=== PATIENT | male | born 1940 | race Caucasian/White ===

== ENCOUNTER 2022-05-18 19:24 | Emergency (ER) | payer MEDICARE, MEDICAID, SELFPAY ==
--- NOTE | ~2022-05-18 | XR_ITS ---
EXAMINATION: XR CHEST CLINICAL INFORMATION: Cough. COMPARISON: CT of the chest 09/26/2021 TECHNIQUE: Frontal portable view of the chest was obtained. 9:34 PM FINDINGS: Status post median sternotomy. Heart size is normal. No acute abnormality of chest. No pulmonary vascular congestion. Lungs are normally aerated. There is no pleural effusion or pneumothorax. Multilevel degenerative spondylosis spine. XR/XR chest 1V IMPRESSION: No acute abnormality of the chest.
--- NOTE | 2022-05-18 19:31 | ED.MALEGU ---
HPI - Male Genitourinary General Stated complaint: Blood In Urine/Tachycardia Time Seen by Provider: 05/18/22 19:31 Source: patient Mode of arrival: EMS Limitations: no limitations
[2022-05-18 19:35] VITALS: BP 122/76; BP 142/67; PULSE 91; PULSE 93; RESP 15; TEMP 36.8; O2SAT 96; O2SAT 97; BMI 21.1
--- NOTE | 2022-05-18 19:44 | PC.NURSE ---
spoke with visiting nurse: pt coming from home sob, cough, uri symptoms x2d, tested +ve for covid yesterday. increased weakness, blood in urine noted yesterday. query sepsis, pneumonia. vss at home, afebrile.
--- NOTE | 2022-05-18 19:46 | ED.AMS ---
HPI - Altered Mental Status General Chief Complaint: General Medical Stated Complaint: Blood In Urine/Tachycardia Time Seen by Provider: 05/18/22 19:31 Source: patient Mode of arrival: EMS Limitations: no limitations History of Present Illness HPI narrative: Patient 81 years old with history of seizures on Keppra 1500 mg twice daily last MRI 06/08 revealed diffuse cortical volume loss [facility] 2004, HTN, HLD, PVD, nicotine use disorder, , PUD, BPH, prostate cancer s/p radiation 2018 brought by EMS for increased weakness cold/cough symptoms for last few days per EMS patient was sitting on the chair leaned over started having seizure-like activity eyes rolled back and had a blank stare after the episode patient was postictal did not recognize his patient does not remember the event patient has seizure disorder on Keppra last seizure was about 6 months ago. Also BN and noticed that patient had some blood in the urine , patient sick with COVID Related Data Allergies Allergy/AdvReac Type Severity Reaction Status Date / Time No Known Allergies Allergy Verified 05/18/22 19:55 Review of Systems Review of Systems: Yes all other systems are reviewed and are negative PMFSH Past Medical History Medical History Anxiety Depression Seizure Surgical History Hx of CABG Social History Social History Advance Directives: No Advance Directives Information Provided: No Physical Exam ED Vital Signs: Vital Signs - 24 hr 05/18/22 19:35 05/18/22 21:21 05/19/22 00:19 Temperature 98.2 F 97.9 F 98.6 F Pulse Rate 91 84 88 Respiratory Rate 15 20 15 Blood Pressure 142/67 H 137/56 L 105/55 L Pulse Oximetry 97 98 97 Oxygen Delivery Method Room Air Room Air Room Air 05/19/22 00:28 Temperature Pulse Rate 82 Respiratory Rate 15 Blood Pressure 109/54 L Pulse Oximetry 96 Oxygen Delivery Method Room Air BMI result Body Mass Index 21.1 Appearance: Alert. Oriented X3. No acute distress. Eyes: PERRLA, No Nystagmus ENT: Pharynx normal. Oral Mucosa moist Neck: Normal inspection. Neck supple. CVS: Normal heart rate and rhythm. Pulses normal. Respiratory: No respiratory distress. Equal air entry bilateral, no wheezing/rales/rhonchi Abdomen: Soft and nontender. Bowel sounds are present, no mass palpable, no CVA tenderness Skin: Skin warm and dry. Normal skin color. Normal skin turgor. Extremities: No lower extremity edema. No calf tenderness Neuro: Oriented X 3. No motor deficit. No sensory deficit.No cerebellar signs , cranial nerves II-XII intact Medications Administered Discontinued Medications Generic Name Dose Route Start Last Admin Trade Name Freq PRN Reason Stop Dose Admin Sodium Chloride 1,000 mls @ 999 mls/hr 05/18/22 19:55 05/18/22 21:44 Ns IV 05/18/22 20:55 Infused .Q1H1M ONE Infusion Sodium Chloride 1,000 mls @ 999 mls/hr 05/18/22 22:06 05/18/22 23:20 Ns IV 05/18/22 23:06 Infused .Q1H1M ONE Infusion Ceftriaxone Sodium 1 gm/ 50 mls @ 100 mls/hr 05/18/22 22:06 05/18/22 22:54 Sodium Chloride IV 05/18/22 22:35 Infused ONCE ONE Infusion Medical Decision Making Medical Decision Making [facility] Narrative: 81 years old with history of seizures on Keppra 1500 mg twice daily last MRI 06/08 revealed diffuse cortical volume loss [facility]/p [facility]G X3 2004, HTN, HLD, PVD, nicotine use disorder, , PUD, BPH, prostate cancer s/p radiation 2018 brought by EMS for increased weakness cold/cough symptoms for last few days workup showed patient COVID positive chest x-ray negative saturating 98% room air patient feeling very weak to go home his lactic acidosis likely type B lactic acidosis from dehydration and seizure episode will keep patient for physician observation overnight will consult case management for placement Admission/Observation Consideration of admission/observation: Escalation of care including admission/observation considered Lab Data [facility] Lab Attestation statement: I reviewed the patient's lab results. Result Diagrams: 05/18/22 20:39 05/18/22 21:13 Labs: Lab Results 05/18/22 05/18/22 05/18/22 Range/Units 20:39 21:13 21:13 WBC 6.5 (4.8-10.8) X10*3/uL RBC 4.11 L (4.60-5.80) X10*6/uL Hgb 12.2 L (14.0-18.0) g/dl Hct 36.5 L (42.0-52.0) % MCV 88.8 (80.0-98.0) fL MCH 29.7 (27.0-33.0) pg MCHC 33.4 (31.0-36.0) g/dl RDW 14.8 (11.0-16.0) % Plt Count 184 (160-400) X10*3/uL MPV 10.2 (9.4-12.4) fL Immature Gran % (Auto) 0.9 H (0.0-0.4) % Neut % (Auto) 80.1 H (45-73) % Lymph % (Auto) 8.1 L (20-40) % Duc[place]ne % (Auto) 9.8 (2-11) % Eos % (Auto) 0.6 (0-4) % Baso % (Auto) 0.5 (0-2) % Lymph # (Auto) 0.5 L (1.2-4.9) X10*3/uL [place]ne # (Auto) 0.6 (0.1-1.2) X10*3/uL Eos # (Auto) 0.0 (0.0-0.4) X10*3/uL Baso # (Auto) 0.0 (0.0-0.2) X10*3/uL Abs Immat Gran (auto) 0.06 H (0.00-0.03) X10*3/uL Absolute Neuts (auto) 5.2 (2.0-8.3) x10*3/uL Absolute Nucleated RBC 0.000 (0.0-0.012) X10*3/uL Nucleated RBC % (auto) 0.0 (0.0-0.2) /100WBC Sodium 141 (135-145) mmol/L Potassium 4.2 (3.3-5.1) mmol/L Chloride 105 (96-108) mmol/L Carbon Dioxide 26 (22-29) mmol/L Anion Gap 14 (12-20) BUN 21 H (9-16) mg/dL Creatinine 0.77 (0.5-1.4) mg/dL Estim Creat Clear Calc 66.2 Estimated GFR > 60 Random Glucose 108 (60-115) mg/dL Lactic Acid 3.1 H* (0.5-2.0) mmol/L Lactic Acid F/U @ 2Hr (0.5-2.0) mmol/L Calcium 8.8 (8.4-10.2) mg/dL Total Bilirubin 3.0 H (0.0-1.0) mg/dL AST 23 (5-37) U/L ALT 15 (0-40) U/L Alkaline Phosphatase 52 (39-117) U/L Troponin I High Sens (<3.5-35.0) ng/L Total Protein 6.3 L (6.5-8.0) g/dL Albumin 4.1 (3.5-5.0) g/dL Urine Color Urine Appearance Urine pH (5.0-9.0) Ur Specific [place] (1.005-1.025) Urine Protein (Neg-Trace) mg/dL Urine Glucose (UA) (Negative) mg/dL Urine Ketones (Negative) mg/dL Urine Blood (Negative) Urine Nitrite (Negative) Ur Leukocyte Esterase (Negative) Urine RBC (0-2) /HPF Urine WBC (0-5) /HPF Ur Squamous Epith Cells (0-2) /HPF Urine Bacteria (None Seen) Hyaline Casts (0-2) /LPF Influenza Type A (PCR) (Negative) Influenza Type B (PCR) (Negative) RSV RNA Qual (PCR) (Negative) SARS-CoV-2 RNA (RT-PCR) (Negative) 05/18/22 05/18/22 05/19/22 Range/Units 21:13 23:26 00:01 WBC (4.8-10.8) X10*3/uL RBC (4.60-5.80) X10*6/uL Hgb (14.0-18.0) g/dl Hct (42.0-52.0) % MCV (80.0-98.0) fL MCH (27.0-33.0) pg MCHC (31.0-36.0) g/dl RDW (11.0-16.0) % Plt Count (160-400) X10*3/uL MPV (9.4-12.4) fL Immature Gran % (Auto) (0.0-0.4) % Neut % (Auto) (45-73) % Lymph % (Auto) (20-40) % Duchesne % (Auto) (2-11) % Eos % (Auto) (0-4) % Baso % (Auto) (0-2) % Lymph # (Auto) (1.2-4.9) X10*3/uL [place] # (Auto) (0.1-1.2) X10*3/uL Eos # (Auto) (0.0-0.4) X10*3/uL Baso # (Auto) (0.0-0.2) X10*3/uL Abs Immat Gran (auto) (0.00-0.03) X10*3/uL Absolute Neuts (auto) (2.0-8.3) x10*3/uL Absolute Nucleated RBC (0.0-0.012) X10*3/uL Nucleated RBC % (auto) (0.0-0.2) /100WBC Sodium (135-145) mmol/L Potassium (3.3-5.1) mmol/L Chloride (96-108) mmol/L Carbon Dioxide (22-29) mmol/L Anion Gap (12-20) BUN (9-16) mg/dL Creatinine (0.5-1.4) mg/dL Estim Creat Clear Calc Estimated GFR Random Glucose (60-115) mg/dL Lactic Acid (0.5-2.0) mmol/L Lactic Acid F/U @ 2Hr 1.0 (0.5-2.0) mmol/L Calcium (8.4-10.2) mg/dL Total Bilirubin (0.0-1.0) mg/dL AST (5-37) U/L ALT (0-40) U/L Alkaline Phosphatase (39-117) U/L Troponin I High Sens (<3.5-35.0) ng/L Total Protein (6.5-8.0) g/dL Albumin (3.5-5.0) g/dL Urine Color Dark Yellow Urine Appearance Clear Urine pH 5.5 (5.0-9.0) Ur Specific [place] >= 1.030 H (1.005-1.025) Urine Protein 30 (1+) H (Neg-Trace) mg/dL Urine Glucose (UA) Negative (Negative) mg/dL Urine Ketones 80 (Negative) mg/dL Urine Blood Trace H (Negative) Urine Nitrite Negative (Negative) Ur Leukocyte Esterase Negative (Negative) Urine RBC 6-10 H (0-2) /HPF Urine WBC 0-5 (0-5) /HPF Ur Squamous Epith Cells 0-2 (0-2) /HPF Urine Bacteria None Seen (None Seen) Hyaline Casts 0-2 (0-2) /LPF Influenza Type A (PCR) NEGATIVE (Negative) Influenza Type B (PCR) NEGATIVE (Negative) RSV RNA Qual (PCR) NEGATIVE (Negative) SARS-CoV-2 RNA (RT-PCR) POSITIVE A (Negative) 05/19/22 Range/Units 00:01 WBC (4.8-10.8) X10*3/uL RBC (4.60-5.80) X10*6/uL Hgb (14.0-18.0) g/dl Hct (42.0-52.0) % MCV (80.0-98.0) fL MCH (27.0-33.0) pg MCHC (31.0-36.0) g/dl RDW (11.0-16.0) % Plt Count (160-400) X10*3/uL MPV (9.4-12.4) fL Immature Gran % (Auto) (0.0-0.4) % Neut % (Auto) (45-73) % Lymph % (Auto) (20-40) % [place]ne % (Auto) (2-11) % Eos % (Auto) (0-4) % Baso % (Auto) (0-2) % Lymph # (Auto) (1.2-4.9) X10*3/uL [place] # (Auto) (0.1-1.2) X10*3/uL Eos # (Auto) (0.0-0.4) X10*3/uL Baso # (Auto) (0.0-0.2) X10*3/uL Abs Immat Gran (auto) (0.00-0.03) X10*3/uL Absolute Neuts (auto) (2.0-8.3) x10*3/uL Absolute Nucleated RBC (0.0-0.012) X10*3/uL Nucleated RBC % (auto) (0.0-0.2) /100WBC Sodium (135-145) mmol/L Potassium (3.3-5.1) mmol/L Chloride (96-108) mmol/L Carbon Dioxide (22-29) mmol/L Anion Gap (12-20) BUN (9-16) mg/dL Creatinine (0.5-1.4) mg/dL Estim Creat Clear Calc Estimated GFR Random Glucose (60-115) mg/dL Lactic Acid (0.5-2.0) mmol/L Lactic Acid F/U @ 2Hr (0.5-2.0) mmol/L Calcium (8.4-10.2) mg/dL Total Bilirubin (0.0-1.0) mg/dL AST (5-37) U/L ALT (0-40) U/L Alkaline Phosphatase (39-117) U/L Troponin I High Sens 20.5 (<3.5-35.0) ng/L Total Protein (6.5-8.0) g/dL Albumin (3.5-5.0) g/dL Urine Color Urine Appearance Urine pH (5.0-9.0) Ur Specific [place] (1.005-1.025) Urine Protein (Neg-Trace) mg/dL Urine Glucose (UA) (Negative) mg/dL Urine Ketones (Negative) mg/dL Urine Blood (Negative) Urine Nitrite (Negative) Ur Leukocyte Esterase (Negative) Urine RBC (0-2) /HPF Urine WBC (0-5) /HPF Ur Squamous Epith Cells (0-2) /HPF Urine Bacteria (None Seen) Hyaline Casts (0-2) /LPF Influenza Type A (PCR) (Negative) Influenza Type B (PCR) (Negative) RSV RNA Qual (PCR) (Negative) SARS-CoV-2 RNA (RT-PCR) (Negative) Independent Interpretation I performed an independent interpretation of an: EKG Interpretation: Normal sinus rhythm heart rate 89 beats per minute T-wave inversion in anterior leads no acute ST elevation no acute ischemia External Record Review External record reviewed: Outside ED record Discharge Plan Discharge Clinical Impression: COVID-19, Weakness Patient Disposition: Still a Patient
--- NOTE | 2022-05-18 19:55 | ECG_ITS ---
Test Reason : AMS Blood Pressure : / mmHG Vent. Rate : 089 BPM Atrial Rate : 089 BPM P-R Int : 132 ms QRS Dur : 094 ms QT Int : 392 ms P-R-T Axes : 023 025 051 degrees QTc Int : 476 ms Normal sinus rhythm T wave abnormality, consider anterior ischemia Prolonged QT Abnormal ECG No previous ECGs available Referred By: Malachi Azevedo Electronically Signed By:CHRISTY LAWS MD
--- NOTE | 2022-05-18 20:20 | PC.NURSE ---
IV in R AC 20g, not obtained by this nurse, infltrated. Established a new line 22g on L hand.
[2022-05-18] MEDS: 0.9 % Sodium Chloride 1,000 ML 999 ML IV ×2 (20:40→22:19)
[2022-05-18 20:42] LABS: MANUAL DIFF FLAG NO
[2022-05-18 20:44] LABS: Basophils Percent Auto 0.5 % (0-2); Eosinophils Percent Auto 0.6 % (0-4); Hematocrit 36.5 % (42.0-52.0); Hemoglobin 12.2 g/dl (14.0-18.0); Imm Gran Abs Auto 0.06 X10*3/uL (0.00-0.03); Imm Gran Pct Auto 0.9 % (0.0-0.4); Lymphocytes Absolute Auto 0.5 X10*3/uL (1.2-4.9); Lymphocytes Percent Auto 8.1 % (20-40); Mean Corpuscular HGB Conc 33.4 g/dl (31.0-36.0); Mean Corpuscular Hemoglobin 29.7 pg (27.0-33.0); Mean Corpuscular Volume 88.8 fL (80.0-98.0); Mean Platelet Volume 10.2 fL (9.4-12.4); Monocytes Absolute Auto 0.6 X10*3/uL (0.1-1.2); Monocytes Percent Auto 9.8 % (2-11); Neutrophils Absolute Auto 5.2 x10*3/uL (2.0-8.3); Neutrophils Percent Auto 80.1 % (45-73); Platelet Count 184 X10*3/uL (160-400); Red Blood Count 4.11 X10*6/uL (4.60-5.80); Red Cell Distribution Width 14.8 % (11.0-16.0); White Blood Count 6.5 X10*3/uL (4.8-10.8)
[2022-05-18 21:21] VITALS: BP 137/56; PULSE 84; RESP 20; TEMP 36.6; O2SAT 98
[2022-05-18 21:39] LABS: Alanine Aminotransferase 15 U/L (0-40); Albumin Level 4.1 g/dL (3.5-5.0); Alkaline Phosphatase 52 U/L (39-117); Anion Gap 14 (12-20); Aspartate Amino Transferase 23 U/L (5-37); Blood Urea Nitrogen 21 mg/dL (9-16); Calcium 8.8 mg/dL (8.4-10.2); Carbon Dioxide 26 mmol/L (22-29); Chloride 105 mmol/L (96-108); Creatinine Clr Calc Pharmacy 66.2; Estimated Glomerular Filt Rate > 60; Glucose Random 108 mg/dL (60-115); Potassium 4.2 mmol/L (3.3-5.1); Sodium 141 mmol/L (135-145); Total Protein 6.3 g/dL (6.5-8.0)
[2022-05-18 21:42] LABS: Lactic Acid 3.1 mmol/L (0.5-2.0)
[2022-05-18 21:55] LABS: Influenza A PCR NEGATIVE (Negative); Influenza B PCR NEGATIVE (Negative); Resp Syncy Virus RNA Qual PCR NEGATIVE (Negative); SARS COV2 PCR INHOUSE POSITIVE (Negative)
--- NOTE | 2022-05-18 21:58 | PC.NURSE ---
Notified AUSTIN Reynoso and provider Dr. Mcnamara of lactic acid of 3.1.
[2022-05-18] MEDS: cefTRIAXone sodium 1 GM in 0.9 % Sodium Chloride 50 ML IV (22:19)
--- NOTE | 2022-05-18 22:38 | PC.NURSE ---
pt resting comfortably on stretcher, reports no pain at this time, awaiting new orders from
[2022-05-18 23:16] LABS: Reflex Lactate? Lactic Acid Added
[2022-05-18 23:33] LABS: Appearance Urine Clear; Color Urine Dark Yellow; Glucose Urine UA Negative (Negative); Leukocyte Esterase Urine Negative (Negative); Nitrite Urine Negative (Negative); PH 5.5 (5.0-9.0); Specific Gravity - Urine >= 1.030 (1.005-1.025); UMIC TRIGGER UACC YES; Urine Blood Trace (Negative); Urine Ketones 80 mg/dL (Negative); Urine Protein 30 (1+) mg/dL (Neg-Trace)
[2022-05-18 23:36] LABS: Bacteria Urine None Seen (None Seen); Hyaline Casts Urine 0-2 /LPF (0-2); Squamous Epithelial Cell Urine 0-2 /HPF (0-2); WBC Urine 0-5 /HPF (0-5)
[2022-05-19] VITALS (11 sets, daily range): BP systolic 105–117; BP diastolic 47–83; PULSE 70–96; RESP 15–19; TEMP 36.2–37; O2SAT 95–99
--- NOTE | 2022-05-19 00:20 | MHC.EDTECH ---
pt is resting quietly, he was given a sandwick and michael gurpreet he said he has not eaten in 3 days. vitals were taken
[2022-05-19 00:30] LABS: Troponin-I High Sensitivity 20.5 ng/L (<3.5-35.0)
--- NOTE | 2022-05-19 02:02 | MHC.EDTECH ---
pt is resting quietly, he ate all his sandwich , he is resting
[2022-05-19] MEDS: levETIRAcetam 1,000 MG TABLET 1500 MG PO (02:03)
--- NOTE | 2022-05-19 02:43 | PC.NURSE ---
Pt able to take medication orally with water with no difficulty. Pt now sleeping, respirations are even and unlabored, no apparent distress
--- NOTE | 2022-05-19 05:02 | PC.NURSE ---
Took of care at 3:15am from AUSTIN Ryenoso. pt reposition for comfort with PCT Brigitte. Pt resting with no sign of distress. Pt able to speak in full sentences and answer question appropriately. Will continue to monitor.
--- NOTE | 2022-05-19 06:17 | PC.NURSE ---
pt reposition during morning rounds. no sign of distress. pt resting comfortable in bed. Call callahan with in reach. Will continue to monitor.
--- NOTE | 2022-05-19 06:18 | MHC.EDTECH ---
pt is resting he has not been to sleep at all on 117 shift, he took off his heart monitor leads x's 2. he seems to think he has to go meet his , vitals were taken
[2022-05-19] MEDS: Metoprolol Succinate ER 25 MG TAB.ER.24H PO ×2 (08:25→22:34)
[2022-05-19] MEDS: levETIRAcetam 500 MG TABLET 1500 MG PO ×2 (08:25→22:33)
[2022-05-19] MEDS: Gabapentin 100 MG CAPSULE PO ×3 (08:25→22:34)
--- NOTE | 2022-05-19 11:31 | PHA.MEDREC ---
Pharmacy Consult ? Medication Reconciliation Pharmacy has completed the medication reconciliation. Patient unsure of medications. Patient claim history recent. 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 Ashley Gary, ArmondD
--- NOTE | 2022-05-19 13:26 | MHC.CM.ED ---
Received case management consult overnight. Patient came to ER due to blood in urine. Patient found to be positive for Covid. Patient's is currently at home with Covid. Physicla therapy eval completed. Short term rehab is recommended. Anticipate pateint will be difficult to place due to Covid. Referral broadcasted to all facilities within 20 miles of patient's home that can accept Covid patients. Continue to monitor for d/c needs.
--- NOTE | 2022-05-19 16:25 | PC.NURSE ---
spoke with [facility], they put multiple referrals out for placement. waiting to hear back. patient is alert, confused. verbally redirectable. able to make needs known
[2022-05-19] MEDS: Atorvastatin Calcium 10 MG TABLET PO (22:34)
[2022-05-20] MEDS: LORazepam 1 MG TABLET PO (00:32)
--- NOTE | 2022-05-20 00:37 | PC.NURSE ---
Pt. restless in room getting out of bed. Pt. states that he's worried about his at home with their kids. Pt. medicated with ativan per JUL. Flushed pt. IV. Pt. resting in bed at this time.
[2022-05-20 01:13] VITALS: BP 116/74; PULSE 75; RESP 16; TEMP 37.1; O2SAT 95
[2022-05-20 06:07] VITALS: BP 124/78; PULSE 74; RESP 15; TEMP 36.6; O2SAT 95
--- NOTE | 2022-05-20 06:19 | PC.NURSE ---
Pt. sleeping soundly since being medicated with Ativan. Respirations are even and unlabored. No distress noted. Will continue to monitor.
[2022-05-20] MEDS: Gabapentin 100 MG CAPSULE PO (10:27)
[2022-05-20] MEDS: levETIRAcetam 500 MG TABLET 1500 MG PO (10:27)
[2022-05-20] MEDS: Metoprolol Succinate ER 25 MG TAB.ER.24H PO (10:27)
--- NOTE | 2022-05-20 10:36 | MHC.CM.ED ---
Addendum entered by Hellen Bennett 05/20/22 11:21: Appears patient is not active with any VNA. Referral broadcasted in [facility] for fdc and physical therapy. [facility] is able to accept. Original Note: Patient remains in ER. Positive for Covid 05/18. Patient's is currently at home with Covid. Physical therapy eval completed on 05/19 rec STR. Patient currently ambulating around ER. Met with patient in regards to discharge planning. Patient lives with his , uses a cane for mobility and is active with [facility]. [facility]. Patient is denying the need for STR at this time and is requeseting to go home. T/W spoke with patient's , Christie, via telephone at [phone]. Christie is agreeable for patient to return home. [facility] booked for 1030am. Patient, Pat, Eileen RN and Karina YEBOAH aware. Referral made to [facility] via [facility]. Patient is not active with their agency. Referral made in [facility] to try to determine which agency patient is active with. Continue to monitor for d/c needs.
--- NOTE | 2022-05-20 11:49 | MHC.CM.ED ---
Received telephone call from [facility]. Patient is active with their agency for SN and will add physical therapy.
== END 2022-05-20 10:40 | disposition home or self-care (01) ==
PROVIDERS: Emergency Provider Internal Medicine; PCP Internal Medicine
DX: U07.1 COVID-19 (principal); R31.9 Hematuria, unspecified; R00.0 Tachycardia, unspecified; R53.1 Weakness; R26.2 Difficulty in walking, not elsewhere classified; Z79.899 Other long term (current) drug therapy
CPT/HCPCS: 0241U; 36415; 71045; 80053; 81001; 83605; 84484; 85025; 87040; 93005; 96361; 96374; 97161; 99285; J0696